=== PATIENT | male | born 1955 | race Caucasian/White ===

== ENCOUNTER 2021-09-08 16:06 | Emergency (ER) | payer MEDICARE | END 2021-09-08 17:41 | disposition home or self-care (01) | LOC: JP.ED 16:06 | DX: S70.362A Insect bite (nonvenomous), left thigh, initial encounter (principal); W57.XXXA Bitten or stung by nonvenomous insect and other nonvenomous arthropods, initial encounter | CPT/HCPCS: 99283 ==